=== PATIENT | male | born 2000 | race Caucasian/White ===

== ENCOUNTER 2025-02-28 15:13 | Emergency (ER) | payer BC ==
[~2025-02-28] VITALS: Ht 195.6 cm; Wt 77.1 kg
[2025-02-28 15:17] VITALS: BP 114/69; PULSE 72; RESP 18; TEMP 98.4; O2SAT 97
[2025-02-28 16:00] VITALS: BP 110/60; PULSE 68; RESP 18; O2SAT 97
== END 2025-02-28 15:59 | disposition home or self-care (01) ==
LOC: ER 15:13
DX: S62.650A Nondisplaced fracture of middle phalanx of right index finger, initial encounter for closed fracture (principal); S62.652A Nondisplaced fracture of middle phalanx of right middle finger, initial encounter for closed fracture; X58.XXXA Exposure to other specified factors, initial encounter; Y93.89 Activity, other specified; Y92.89 Other specified places as the place of occurrence of the external cause; Y99.8 Other external cause status
CPT/HCPCS: 29130; 99283; 73130-RT